=== PATIENT | female | born 1935 | race African-American/Black ===

== ENCOUNTER 2018-03-13 13:53 | Emergency (ER) | payer MEDICAID ==
[~2018-03-13] VITALS: Ht 167.6 cm; Wt 56.7 kg
[2018-03-13 14:05] VITALS: BP 104/59
[2018-03-13] MEDS ORDERED: LOSARTAN POTASS25 MG ORAL (14:21)
[2018-03-13] MEDS ORDERED: FOSAMAX70 MG ORAL (14:21)
[2018-03-13] MEDS ORDERED: TRILEPTAL600 MG PO (14:21)
[2018-03-13] MEDS ORDERED: Isovue-370 150ml vial INJ PRN (14:45)
[2018-03-13] MEDS ORDERED: Morphine Sulfate 2mg/ml Inj IVP ONE (14:45)
[2018-03-13] MEDS ORDERED: Isovue-300 100ml vial INJ PRN (14:45)
--- NOTE | 2018-03-13 14:45 | Emergency Room Report ---
History of Present Illness General Chief Complaint: Abdominal Pain Source: Patient Present Illness HPI Ms. Hammond is a 82 yo female with hx of HTN, osteoporosis and pacemaker placement who presents with severe 9/10 sharp LLQ pain radiating to central chest. Gradual onset last night. Worse with movement. Worse with breathing. Gradual onset. No fever. NO vomiting. Constant pain. Seen by PCP Dr. Nathen Parnell today. Allergies: Coded Allergies: No Known Allergies (Unverified , 03/13/18) Patient History Limited by: language barrier, other - daughter provided translation Past Medical History: see triage record Past Surgical History: none Social History: Denies: smoking, alcohol use Reviewed Nursing Documentation: PMH: Agreed; PSxH: Agreed Nursing Documentation-PMH Past Medical History: No History, Except For Hx Pacemaker: Yes Review of Systems Constitutional: Denies: fever Respiratory: Denies: cough Cardiovascular: Denies: chest pain Gastrointestinal: Denies: abdominal pain All Other Systems: negative except mentioned in HPI Physical Exam Vital Signs Date Time Temp Pulse Resp B/P (MAP) Pulse Ox O2 Delivery O2 Flow Rate FiO2 03/13/18 14:02 98.1 59 18 108/62 96 Room Air Sp02 EP Interpretation: reviewed, normal General Appearance: no apparent distress, alert, GCS 15, non-toxic Head: normocephalic, atraumatic Eyes: bilateral eye normal inspection ENT: hearing grossly normal, normal pharynx, no angioedema, normal voice Neck: full range of motion, supple/symm/no masses Respiratory: chest non-tender, lungs clear, normal breath sounds, no rhonchi, no respiratory distress, no retraction, no accessory muscle use, speaking full sentences Cardiovascular #1: regular rate, rhythm, no edema, no murmur Gastrointestinal: normal bowel sounds, non tender, soft, non-distended, no guarding, no rebound Musculoskeletal: gait/station normal, normal range of motion, non-tender Neurologic: alert, oriented x3, responsive, motor strength/tone normal, sensory intact, speech normal Psychiatric: judgement/insight normal, memory normal, mood/affect normal, no suicidal/homicidal ideation Skin: normal color, no rash, warm/dry, well hydrated Medical Decision Making Diagnostic Impression: Primary Impression: Abdominal pain Additional Impression: Chest pain ER Course abd pain, chest pain since last night, no indication of MO, PE, AAA, no indication of acute inflammatory process. unclear etiology but does not appear to be serious illness which will cause patient future harm, pain free after small dose of analgesia in ED, recommended Tylenol Labs Test 03/13/18 15:00 White Blood Count 5.8 K/UL (4.8-10.8) Red Blood Count 3.82 M/UL (4.20-5.40) Hemoglobin 10.9 G/DL (12.0-16.0) Hematocrit 33.7 % (37.0-47.0) Mean Corpuscular Volume 88 FL (80-99) Mean Corpuscular Hemoglobin 28.6 PG (27.0-31.0) Mean Corpuscular Hemoglobin Concent 32.5 G/DL (32.0-36.0) Red Cell Distribution Width 14.1 % (11.6-14.8) Platelet Count 111 K/UL (150-450) Mean Platelet Volume 8.8 FL (6.5-10.1) Neutrophils (%) (Auto) 51.3 % (45.0-75.0) Lymphocytes (%) (Auto) 34.3 % (20.0-45.0) Monocytes (%) (Auto) 9.5 % (1.0-10.0) Eosinophils (%) (Auto) 4.2 % (0.0-3.0) Basophils (%) (Auto) 0.8 % (0.0-2.0) Sodium Level 140 MMOL/L (136-145) Potassium Level 4.0 MMOL/L (3.5-5.1) Chloride Level 105 MMOL/L (98-107) Carbon Dioxide Level 30 MMOL/L (21-32) Anion Gap 5 mmol/L (5-15) Blood Urea Nitrogen 12 mg/dL (7-18) Creatinine 1.0 MG/DL (0.55-1.30) Estimat Glomerular Filtration Rate mL/min (>60) Glucose Level 120 MG/DL (74-106) Calcium Level 9.2 MG/DL (8.5-10.1) Total Bilirubin 0.8 MG/DL (0.2-1.0) Aspartate Amino Transf (AST/SGOT) 20 U/L (15-37) Alanine Aminotransferase (ALT/SGPT) 14 U/L (12-78) Alkaline Phosphatase 70 U/L (46-116) Troponin I 0.002 ng/mL (0.000-0.056) Total Protein 7.9 G/DL (6.4-8.2) Albumin 3.7 G/DL (3.4-5.0) Globulin 4.2 g/dL Albumin/Globulin Ratio 0.9 (1.0-2.7) Lipase 52 U/L (73-393) Labs Test 03/13/18 15:00 White Blood Count 5.8 K/UL (4.8-10.8) Red Blood Count 3.82 M/UL (4.20-5.40) Hemoglobin 10.9 G/DL (12.0-16.0) Hematocrit 33.7 % (37.0-47.0) Mean Corpuscular Volume 88 FL (80-99) Mean Corpuscular Hemoglobin 28.6 PG (27.0-31.0) Mean Corpuscular Hemoglobin Concent 32.5 G/DL (32.0-36.0) Red Cell Distribution Width 14.1 % (11.6-14.8) Platelet Count 111 K/UL (150-450) Mean Platelet Volume 8.8 FL (6.5-10.1) Neutrophils (%) (Auto) 51.3 % (45.0-75.0) Lymphocytes (%) (Auto) 34.3 % (20.0-45.0) Monocytes (%) (Auto) 9.5 % (1.0-10.0) Eosinophils (%) (Auto) 4.2 % (0.0-3.0) Basophils (%) (Auto) 0.8 % (0.0-2.0) Sodium Level 140 MMOL/L (136-145) Potassium Level 4.0 MMOL/L (3.5-5.1) Chloride Level 105 MMOL/L (98-107) Carbon Dioxide Level 30 MMOL/L (21-32) Anion Gap 5 mmol/L (5-15) Blood Urea Nitrogen 12 mg/dL (7-18) Creatinine 1.0 MG/DL (0.55-1.30) Estimat Glomerular Filtration Rate mL/min (>60) Glucose Level 120 MG/DL (74-106) Calcium Level 9.2 MG/DL (8.5-10.1) Total Bilirubin 0.8 MG/DL (0.2-1.0) Aspartate Amino Transf (AST/SGOT) 20 U/L (15-37) Alanine Aminotransferase (ALT/SGPT) 14 U/L (12-78) Alkaline Phosphatase 70 U/L (46-116) Total Protein 7.9 G/DL (6.4-8.2) Albumin 3.7 G/DL (3.4-5.0) Globulin 4.2 g/dL Albumin/Globulin Ratio 0.9 (1.0-2.7) Lipase 52 U/L (73-393) Lab Results Impression mild thrombocytopenia EKG Diagnostic Results EKG Time: 15:22 Rate: other - atrial pacing ST Segments: no acute changes Other Impression atrial pacing with prolonged AV conduction, rate [address] elevation no signs of ischemia CT/MRI/US Diagnostic Results CT/MRI/US Diagnostic Results : Impression no evidence of acute process in chest/abdomen according to CT Last Vital Signs Date Time Temp Pulse Resp B/P (MAP) Pulse Ox O2 Delivery O2 Flow Rate FiO2 03/13/18 14:05 97.9 60 18 104/59 99 Room Air Sylvia Recinos MD Mar 13, 2018 14:45
[2018-03-13 15:27] LABS: ANION GAP 5 mmol/L (5-15); BLOOD UREA NITROGEN 12 mg/dL (7-18); CALCIUM 9.2 MG/DL (8.5-10.1); CARBON DIOXIDE 30 MMOL/L (21-32); CHLORIDE 105 MMOL/L (98-107); SODIUM 140 MMOL/L (136-145)
[2018-03-13 15:33] LABS: ALANINE AMINOTRANSFERASE 14 U/L (12-78); ALBUMIN 3.7 G/DL (3.4-5.0); ALBUMIN/GLOBULIN RATIO 0.9 (1.0-2.7); ALKALINE PHOSPHATASE 70 U/L (46-116); ASPARTATE AMINO TRANSFERASE 20 U/L (15-37); BILIRUBIN,TOTAL 0.8 MG/DL (0.2-1.0)
[2018-03-13 15:36] LABS: BASOPHILS % (AUTO) 0.8 % (0.0-2.0); EOSINOPHILS % (AUTO) 4.2 % (0.0-3.0); HEMATOCRIT 33.7 % (37.0-47.0); HEMOGLOBIN 10.9 G/DL (12.0-16.0); LYMPHOCYTES % (AUTO) 34.3 % (20.0-45.0); MEAN CORPUSCULAR VOLUME 88 FL (80-99); MONOCYTES % (AUTO) 9.5 % (1.0-10.0); NEUTROPHILS % (AUTO) 51.3 % (45.0-75.0); PLATELET COUNT 111 K/UL (150-450); RED BLOOD COUNT 3.82 M/UL (4.20-5.40); RED CELL DISTRIBUTION WIDTH 14.1 % (11.6-14.8); WHITE BLOOD COUNT 5.8 K/UL (4.8-10.8)
--- NOTE | 2018-03-13 16:53 | Diagnostic Imaging Report ---
Indication: Chest and abdominal pain Technique: Continuous helical transaxial imaging of the chest, abdomen and pelvis was obtained from the thoracic inlet to the pubic symphysis during rapid intravenous contrast administration. Arterial phase of enhancement obtained. Coronal 2-D reformats were also obtained and maximum intensity projection images in multiple planes. Study obtained in a Siemens sensation [address] Total Dose length Product (DLP): [address] Dose Index Volume (CTDIvol): 0.17 x 2, 12.6 x 2, 0.15 x 2, 25.25, 19.42, 10.75 mGy Comparison: None Findings: The aorta shows moderate atherosclerotic disease with mural calcification. There is mild enlargement of the ascending aorta which has a maximum diameter of about 4.1 cm. Pulmonary artery is well opacified. The no filling defect to suggest pulmonary embolus. No pleural or pericardial effusion identified. Mild reticular densities are demonstrated at the lung bases likely atelectasis. Focal calcification is noted at the dome of the liver nonspecific. Generalized cardiomegaly noted. There is a pacemaker present on the left. Major aortic arch vessels appear unremarkable. Common origin of the brachiocephalic artery and left common carotid artery noted. The thyroid gland is mildly heterogeneous. Abdominal aorta appears normal. There is no stenosis of the major vessels including bilateral renal arteries, SMA, celiac artery. Nonvascular findings based on the images obtained during arterial phase show no obvious abnormalities of the solid organs. No free fluid or free air identified. There is no evidence of bowel obstruction. The appendix is noted and normal. The bladder is unremarkable. There is no hydronephrosis. IMPRESSION: Mild atherosclerotic vascular disease. No evidence of aneurysm or dissection. No evidence of pulmonary embolus. Mild posterior basal atelectasis. Pacemaker The CT scanner at [facility] is accredited by the [employer] and the scans are performed using dose optimization techniques as appropriate to a performed exam including Automatic Exposure control.
[2018-03-13 17:29] VITALS: BP 110/60
[2018-03-13 17:30] VITALS: BP 110/60
== END 2018-03-13 17:30 | disposition home or self-care (01) ==
LOC: EMR 14:50
DX: R10.32 Left lower quadrant pain (principal); R07.9 Chest pain, unspecified; I10 Essential (primary) hypertension; M81.0 Age-related osteoporosis without current pathological fracture; D69.6 Thrombocytopenia, unspecified; Z95.0 Presence of cardiac pacemaker
CPT/HCPCS: 36415; 71275; 74174; 80053; 83690; 84484; 85025; 96374; 96375; 99284; J2270; J2405; Q9967